=== PATIENT | male | born 1985 | race Hispanic/Latino ===

== ENCOUNTER → 2016-04-12 | Outpatient (CLI) | payer OTHER ==
--- NOTE | 2016-04-13 08:57 | REP ---
CT study of the right wrist without contrast: History: Right wrist bone pain. Bone lesion versus giant cell tumor. Radiographs from February are reportedly positive for a possible bone lesion versus giant cell tumor in the distal radius. These radiographs are not available. CT findings: Helical scanning is acquired and contiguous 2 mm axial slices are reformatted. Coronal and sagittal multiplanar re-formation images are generated and reviewed. CT findings: There is mild old post-traumatic deformity in the distal radius. No bony destructive lesion is seen. There is a tiny exostosis from the volar aspect of the distal radial metaphysis. There is a tiny dystrophic calcification adjacent to the distal ulna at the level of the distal radial ulnar articulation. 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 Carpal bones are otherwise intact. No malalignment is seen. No cyst or soft tissue mass is seen. Carpal tunnel and its contents appear unremarkable. There is some low density at the level of the radiocarpal joint surrounding it consistent with some joint effusion. No erosive changes seen. 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 No bony destructive lesion is seen. Small accessory ossicle versus ununited fracture at the volar aspect of the lunate bone. Possible wrist joint effusion. Signed by Juan Pablo Grier MD 04/13/2016 09:23 A
== END ==
LOC: M RAD 14:57
DX: M25.531 Pain in right wrist (principal)